=== PATIENT | female | born 1955 | race Caucasian/White ===

== ENCOUNTER 2022-05-02 09:45 | Outpatient (CLI) | payer BC | END 2022-05-02 09:46 | disposition home or self-care (01) | LOC: BICCT 09:45 | PROVIDERS: ATTEND Ophthalmology | DX: R31.29 Other microscopic hematuria (principal); H57.04 Mydriasis; I86.8 Varicose veins of other specified sites; Q28.2 Arteriovenous malformation of cerebral vessels; I65.23 Occlusion and stenosis of bilateral carotid arteries | CPT/HCPCS: 70496; 82565 ==

== ENCOUNTER 2024-05-10 11:01 | Outpatient (CLI) | payer MEDICARE, BC | END 2024-05-10 11:02 | disposition home or self-care (01) | LOC: BICMAMMO 11:01 | PROVIDERS: ATTEND Physician Assistant | DX: Z12.31 Encounter for screening mammogram for malignant neoplasm of breast (principal) | CPT/HCPCS: 77063; 77067 ==